=== PATIENT | female | born 1970 | race Caucasian/White ===

== ENCOUNTER 2024-02-09 17:02 | Emergency (ER) | payer BC ==
[~2024-02-09] VITALS: Ht 152.4 cm; Wt 90.7 kg
[2024-02-09 17:19] VITALS: BP_SYST 126; PULSE 126; RESP 20; TEMP 98.6; O2SAT 100
== END 2024-02-09 17:59 | disposition left against medical advice (07) ==
LOC: SED 17:02
DX: F41.9 Anxiety disorder, unspecified (principal); Z53.21 Procedure and treatment not carried out due to patient leaving prior to being seen by health care provider